=== PATIENT | female | born 1990 | race African-American/Black ===

== ENCOUNTER 2018-11-20 22:27 | Inpatient (IN) | payer OTHER ==
[~2018-11-20] VITALS: Ht 157.5 cm; Wt 89.8 kg
[2018-11-20 23:07] VITALS: BP 140/87
[2018-11-20] MEDS ORDERED: HYDROCHLOROTHIA25 M2 PO (23:29)
[2018-11-21 02:29] LABS: URINE BILIRUBIN NEGATIVE (Negative); URINE BLOOD 2+ (Negative); URINE CLARITY TURBID; URINE COLOR YELLOW; URINE GLUCOSE-RANDOM* NEGATIVE (Negative); URINE KETONES NEGATIVE (Negative); URINE LEUKOCYTES-REFLEX NEGATIVE (Negative); URINE NITRITE-REFLEX NEGATIVE (Negative); URINE PROTEIN (DIPSTICK) 2+ (Negative); URINE SPECIFIC GRAVITY >= 1.030 (1.005-1.035); URINE UROBILINOGEN 0.2 E.U./dl (0.2-1.0)
[2018-11-21 02:35] LABS: ABSOLUTE NEUTROPHILS 2.2 thou/uL (1.4-8.2); BASOPHILS 1.3 % (0.0-2.0); EOSINOPHILS 1.3 % (0.0-3.0); HEMATOCRIT 36.5 % (37.0-47.0); HEMOGLOBIN 12.1 gm/dL (12.0-15.0); LYMPHOCYTES 49.5 % (24.0-44.0); MCH 25.4 pg (26.0-34.0); MCHC 33.2 g/dL (28.0-37.0); MCV 76.6 fL (80.0-100.0); MONOCYTES 7.6 % (1.0-8.0); PLATELET COUNT 208 thou/uL (150-400); POLYS 40.3 % (36.0-66.0); RBC 4.77 mil/uL (4.20-5.00); RDW 16.8 % (10.5-14.5); WBC 5.5 thou/uL (4.0-11.0)
[2018-11-21 02:43] LABS: AMP/METHAMP Negative (Negative); BARBITURATES Negative (Negative); BENZODIAZEPINES Negative (Negative); COCAINE Negative (Negative); METHADONE Negative (Negative); OPIATES Negative (Negative); PCP Negative (Negative)
[2018-11-21 02:44] LABS: AMORPHOUS URATES Many /LPF (None Seen); BACTERIA-REFLEX 1-9 Few /HPF (None Seen); CASTS None Seen /LPF (None Seen); MUCUS 0-3 Light strn/LPF (None Seen); SQUAMOUS 0-3 Few /LPF (0-3); URINE RBC 3-10 Few /HPF (0-2); URINE WBC-REFLEX 0-5 Rare /HPF (0-5)
[2018-11-21 02:47] LABS: ANION GAP 10 mmol/L (7-16); BUN 6 mg/dL (7-18); CALCIUM 9.2 mg/dL (8.5-10.1); CHLORIDE 102 mmol/L (98-107); CO2 26 mmol/L (21-32); CREATININE 0.8 mg/dL (0.6-1.0); GLUCOSE 101 mg/dL (74-106); POTASSIUM 3.8 mmol/L (3.5-5.1); SODIUM 138 mmol/L (136-145)
[2018-11-21 02:51] LABS: APTT 27.1 Seconds (24.5-32.8); D-DIMER 0.35 ug/mLFEU (0.19-0.50); PROTIME 10.1 Seconds (9.3-11.4)
[2018-11-21 02:58] LABS: ALBUMIN 3.5 g/dL (3.4-5.0); MAGNESIUM 1.9 mg/dL (1.8-2.4); SGOT 17 U/L (15-37); SGPT 21 U/L (30-65); TOTAL BILIRUBIN 0.5 mg/dL (<0.1-1.0); TOTAL PROTEIN 8.3 g/dL (6.4-8.2); TROPONIN-I <0.06 ng/mL (<0.06)
[2018-11-21 06:12] VITALS: BP 156/82
[2018-11-21 07:35] VITALS: BP 137/107
--- NOTE | 2018-11-21 08:39 | EKG ---
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: LINDEN : 1990 Requested By: Mau Garner Order Number: [id number] MD: Antoine Cruz Measurements Intervals [place] Rate: 73 P: 8 GA: 181 QRS: 36 QRSD: 85 T: 14 QT: 392 QTc: 432 Interpretive Statements Sinus rhythm Borderline T wave abnormalities Baseline wander in lead(s) II,III,aVF No previous ECG available for comparison Electronically Signed On 11-21-2018 8:39:28 CDT by Antoine Cruz [email or web address] <ELECTRONICALLY SIGNED> By: Antoine Cruz MD, [facility] 11/21/18 0839 38 38 Antoine Cruz MD, FAC /EPI
[2018-11-21 11:20] VITALS: BP 153/93
[2018-11-21 17:15] VITALS: BP 140/86
--- NOTE | 2018-11-21 19:26 | NUR ---
ASSUMED CARE OF PATIENT AT 0700. ASSESSMENT CHARTED. ADMISSION COMPLETED. PATIENT COMPLAINING OF RIGHT SHOULDER PAIN, INCREASED WITH LAYING ON IT. PAIN CONTROLLED WITH FENTANYL. PATIENT RECEIVING IV ABX. PATIENT RESTING COMFORTABLY. CONTINUE WITH POC.
[2018-11-21 19:53] VITALS: BP 140/87
[2018-11-21 23:30] VITALS: BP 123/76
--- NOTE | 2018-11-22 02:24 | NUR ---
ASSUMED PT CARE AT 1900 WITH NO SIGN OF DISTRESS NOTED. PT IS ALERT AND ORIENTED. VITAL SIGNS STABLE. SCHEDULED MEDS ADMINISTERED TO PT. DENIES ANY NEED. PT IS SEENY ID . CONTINUE TO MONITOR. TRANSFER CARE TO KIM GALINDO.
[2018-11-22 04:05] VITALS: BP 152/94
[2018-11-22 05:30] LABS: CALCIUM 8.8 mg/dL (8.5-10.1); CREATININE 0.7 mg/dL (0.6-1.0); MAGNESIUM 1.8 mg/dL (1.8-2.4)
[2018-11-22 05:59] LABS: BASOPHILS 0.1 % (0.0-2.0); HEMATOCRIT 34.4 % (37.0-47.0); HEMOGLOBIN 11.6 gm/dL (12.0-15.0); LYMPHOCYTES 18.1 % (24.0-44.0); MCH 25.8 pg (26.0-34.0); MCHC 33.6 g/dL (28.0-37.0); MCV 76.7 fL (80.0-100.0); MONOCYTES 7.2 % (1.0-8.0); PLATELET COUNT 214 thou/uL (150-400); POLYS 74.6 % (36.0-66.0); RBC 4.48 mil/uL (4.20-5.00); RDW 16.4 % (10.5-14.5); WBC 6.7 thou/uL (4.0-11.0)
[2018-11-22 07:45] VITALS: BP 134/59
--- NOTE | 2018-11-22 08:57 | HC ---
[facility] [place] [address] [address] CONSULTATION Name: KEANU DOTY Room #: 205-P ADM IN M.R.#: [id number] Admission: 11/21/18 Attend Phys: Mary Kay Watson Discharge: Date of : [birth year] Report #: [id number] THIS REPORT FOR: //name// CC: [facility] physician/PCP Modesto Spence DATE OF SERVICE: 11/21/2018 REASON FOR CONSULTATION: Possible neck or throat involvement with cellulitis. HISTORY OF PRESENT ILLNESS: The patient is a 27-year-old female who has a long history of hidradenitis suppurativa in the right axilla who presented to [facility] this morning with complaint of right neck pain and some mild dysphagia. She had previously had an abscess drained in the right axilla in the last week and a half and she has noted progressive pain in the axilla, right shoulder, right supraclavicular fossa going towards the right neck. She presented to [facility] originally, but then presented here to [facility]. She has noted a possibility of fever and chills, but denies any difficulty with aspiration, significant odynophagia, nasal symptoms with postnasal discharge, rhinorrhea, sinus pressure pain. She denies any dyspnea or stridor. She has a known history of sleep apnea. She has no strong history of tonsillitis or strep throat. She denies any trismus or otalgia at this time. PAST MEDICAL AND SURGICAL HISTORY: As noted for essential hypertension and the above-mentioned hidradenitis suppurativa. MEDICATIONS: At the time of admission were noted. HOME MEDICATIONS: Include a diuretic. ALLERGIES: She has no known allergies to medications. REVIEW OF SYSTEMS: Aside from the above-mentioned symptoms, review systems in the HEENT area unremarkable. PHYSICAL EXAMINATION: VITAL SIGNS: Height of 5 feet 2 inches, weight of approximately 200 pounds. GENERAL: She was in a semi-reclining position in her hospital bed. She did not appear to be in any distress. She had a normal appearing voice. She was not short of breath. HEENT: Examination of her face reveals no evidence of any cellulitis or significant swelling. Ear examination is normal. Anterior nares reveals normal appearing nasal mucosa with a straight septum and turbinates are unremarkable. [address] [address] CONSULTATION Name: KEANU DOTY Room #: 205-P [facility] IN M.R.#: [id number] Admission: 11/21/18 Attend Phys: Mary Kay Watson Discharge: Date of : 89 Report #: [id number] Oral cavity reveals no trismus. The dentition is unremarkable without significant caries. The gingiva appears normal. Floor of mouth is normal. The tongue appears normal. The oropharynx by direct visualization appears unremarkable without any bulging or hyperemia. NECK: Palpation of her neck does not reveal any specific lymphadenopathy or abscess collection. She does have some generalized tenderness to the right posterior neck triangle and some in the right supraclavicular region that is nonspecific. DIAGNOSTIC STUDIES: CT scan was reviewed. There is no evidence of fluid collection in the soft tissues of the neck, retropharyngeal, prevertebral or parapharyngeal spaces. There is moderate swelling in the glottic region by CT scan. No abscesses were noted within the neck itself. Flexible laryngoscopy was performed through an anesthetized right naris. Visualization of the nasal cavity, nasopharynx, oropharynx and hypopharynx were performed. The scope was withdrawn. Findings were as noted below. Normal appearance to the nose, nasopharynx, oropharynx, base of tongue, lingual and laryngeal surfaces of the epiglottis and larynx. There is no encroachment on the airway. There was no sign of bulging on the lateral posterior pharyngeal lyon. ASSESSMENT: History of cellulitis of the right axilla, neck and shoulder without evidence of abscess formation. RECOMMENDATIONS: I would recommend continuation with present therapy. According to Infectious Disease, there should be no encroachment on the airway at this time. I will be available standby if she needs to be reevaluated at this time, I would expect her to recover well with intravenous therapy. Thank you for this consultation. <ELECTRONICALLY SIGNED> By: Modesto Coffey MD 11/22/18 0857 [id number] [id number] Modesto Coffey MD /nt
--- NOTE | 2018-11-22 11:09 | NUR ---
ASSUMED CARE AT 0700, SHIFT ASSESSMENT DONE, MEDS GIVEN, VSS. REPORTED PAIN, PRN PAIN MEDS GIVEN. RECEIVING IV ANTIBIOTICS, ON ROOM AIR, UP AD GENO. AWAITING FOR SURGERY CONSULT. WILL CONTINUE TO ASSESS AND ASSIST WITH ADLs NEEDED.
[2018-11-22 11:50] VITALS: BP 146/86
--- NOTE | 2018-11-22 12:07 | NUR ---
Met with the pt at bedside. She is drowsy and indicates that she needs to call her employer to check on the status of her insurance coverage. She is uncertain of the effective day and does not have a card yet. She has a emiliano application at bedside if needed. She lives in a duplex with her children and is normally indep. She denies any dc concerns at this time and will f/u with her employer about her coverage.
[2018-11-22 15:55] VITALS: BP 142/93
--- NOTE | 2018-11-22 17:27 | HC ---
[facility] [place] [address] [address] CONSULTATION Name: KEANU DOTY Room #: 205-P ADM IN M.R.#: [id number] Admission: 11/21/18 Attend Phys: Mary Kay Watson Discharge: Date of : 89 Report #: [id number] THIS REPORT FOR: //name// CC: [facility] physician/PCP Modesto Spence DATE OF SERVICE: 11/21/2018 INFECTIOUS DISEASE CONSULTATION REASON FOR CONSULTATION: I was asked to evaluate concerning left chest, neck, soft tissue infection. HISTORY OF PRESENT ILLNESS: The patient is a 27-year-old, underlying history of hidradenitis suppurativa, mostly involving her axillary regions and chest. She has had several episodes of abscess formation that required antibiotic therapy incision and drainage. Five days ago, developed acute onset of pain in her right neck. Three weeks prior to this, she had a lesion that involved the right axillary soft tissues that was diagnosed with an abscess of hidradenitis that was treated with incision and drainage. The pain in her right neck was evaluated at [facility]. No new diagnosis was established. She was then discharged, but while at home, she developed worsening pain with associated shortness of breath. Most of the pain was up into her right chest and neck region. She does have drainage from her axillary wound. Due to this worsening, she was hospitalized for further evaluation. She also complained of some difficulty swallowing, but this has stabilized. There has been no nausea, vomiting, abdominal pain or diarrhea. No dysuria or frequency. No cough or sputum production. REVIEW OF SYSTEMS: A 10-point review of system was negative other than what is described above. ALLERGIES: None known. MEDICATIONS: As noted on MAR including vancomycin and Zosyn. PAST MEDICAL HISTORY: Hypertension, hidradenitis, obesity. FAMILY HISTORY: Noncontributory. SOCIAL HISTORY: Nonsmoker, other than THC. No significant alcohol intake. Denies HIV risks. PHYSICAL EXAMINATION: [facility] [address] [place] [address] CONSULTATION Name: KEANU DOTY Room #: 205-P [facility] IN M.R.#: [id number] Admission: 11/21/18 Attend Phys: Mary Kay Fox Shirley Discharge: Date of : 89 Report #: [id number] VITAL SIGNS: Afebrile and hemodynamically stable. GENERAL: Alert and cooperative. She was obese. SKIN: A wound to her right axillary. Skin with moderate amount of seropurulent drainage. I did not find a specific sinus tract. She was tender in this region, which extended up to her anterior shoulder and trapezius region on the right as well as her right neck. Range of motion in the neck was normal. Could not palpate any significant adenopathy. Range of motion of the shoulder was normal. HEENT: Eyes, without scleral icterus. Mouth without mucositis. NECK: Supple. No palpable adenopathy. LUNGS: Clear. HEART: Regular. ABDOMEN: Soft and nontender with no hepatosplenomegaly or mass. EXTREMITIES: Without clubbing, cyanosis or edema. NEUROLOGIC: Cranial nerves intact. Strength in the upper and lower extremities normal. Sensation in the upper and lower extremities normal. Mood was normal. LABORATORY STUDIES: Reviewed. Blood cultures are pending. CT scan of the chest showed inflammatory change in the upper chest without bony abnormality or inflammation in the sternoclavicular or shoulder. IMPRESSION: 1. Right axillary hidradenitis with active lesion there. No drainable abscess evident. Now has soft tissue infection of the right chest, neck region. 2. Obesity. 3. Hypertension. RECOMMENDATIONS: We will continue antibiotic coverage with vancomycin and Zosyn, pending further culture results. We will obtain screen of her right axillary drainage. If no evidence of MRSA, we will drop out the vancomycin. Although she has tenderness over the chest, there is no evidence so far of sternoclavicular arthritis or shoulder involvement. <ELECTRONICALLY SIGNED> By: Mau Rae MD 11/22/18 1727 2125 0150 Mau Rae MD /nt
[2018-11-22 21:39] VITALS: BP 143/85
--- NOTE | 2018-11-23 00:50 | NUR ---
THIS NURSE RECEIVED PATIENT AT SHIFT CHANGE, HOWEVER, PATIENT WAS TRANSFERRED AFTER 2100 MEDICATIONS WERE GIVEN TO ROOM 457 ON 4W. REPORT WAS CALLED AND RECEIVED BY MATEO LEONARDO. PATIENT IS ALERT AND ORIENTED X4 AND HAD HER DAUGHTER OF [employer] 5YEARS OLD WITH HER WHOM SHE SAID WAS GOING TO SPEND THE NIGHT WITH HER AND THAT IT HAD BEEN OK'D - BY WHOM WAS NEVER EXTABLISHED. THIS NURSE HAD THE PATIENT CALL AND MAKE ARRANGEMENTS FOR THE DAUGHTER TO BE PICKED UP FROM ROOM 457. TRANSFER TOOK PLACE AT [address] 2158 VIA WHEELCHAIR.
--- NOTE | 2018-11-23 04:57 | NUR ---
Pt. rested quietly at intervals during the night when checked on during frequent rounds. Pain meds given (see emar) for c/o abdomial pain with some relief noted. Pt. up ad grant in her room.
[2018-11-23 08:00] VITALS: BP 140/106
[2018-11-23 15:00] VITALS: BP 148/90
--- NOTE | 2018-11-23 20:19 | NUR ---
1PM-7PM Received from day shift nurse awake on bed. Due medications given as prescribed. With SL at L hand, with NS at 125cc/hr infusing well at L AC. A+Ox4. On room air. Up ad grant. Complained of pain, due PRN pain meds given as prescribed. No episodes or complain of nausea, vomiting or abdominal pain. Pt complained of constipation and not being able to have bowel movement for 3 days already- Dr Cunningham informed and prescribed stool softener- given as prescribed. Vital signs stable.
[2018-11-23 21:36] VITALS: BP 152/95
--- NOTE | 2018-11-24 04:07 | NUR ---
Pt. rested quietly at intervals during the night when checked on during frequent rounds. She c/o abdominal pain and pain medication given (see emar) with some relief noted. Up ad grant in her room.
[2018-11-24 05:15] LABS: HEMATOCRIT 39.4 % (37.0-47.0); HEMOGLOBIN 12.9 gm/dL (12.0-15.0); MCHC 32.7 g/dL (28.0-37.0); MCV 76.5 fL (80.0-100.0); RBC 5.15 mil/uL (4.20-5.00); RDW 16.4 % (10.5-14.5); WBC 6.1 thou/uL (4.0-11.0)
[2018-11-24 05:37] LABS: CALCIUM 9.4 mg/dL (8.5-10.1); CREATININE 0.9 mg/dL (0.6-1.0); POTASSIUM 3.4 mmol/L (3.5-5.1)
[2018-11-24 15:00] VITALS: BP 139/86
--- NOTE | 2018-11-24 17:21 | NUR ---
Assumed pt care this am, VS have been stable an has been up at grant. Pt met her goal to have a BM which she stated happened last night. Pt did complain of pain and a bit of nausea, managed with medications, relief was noted. POC and IV and oral medication given with no issues. Awaiting lab cultures. No signs or verbalizations of distress have been noted. POC followed.
[2018-11-24 19:23] VITALS: BP 144/98
--- NOTE | 2018-11-25 06:39 | NUR ---
PROGRESS PT A/O X4 RATING PAIN A 5 TO AN 8, VSS,AFEBRILE SKIN CLEAN DRY INTACT NO AREAS OF ERYTHEMA NOTED OR ANY WOUNDS. LEFT HAND IV PULLED OUT IN HER SLEEP SO IVF'S INFUSING INTO IV IN LAC. UP AD GENO AMBULATING TO BATHROOM INDEPENDENTLY GAIT STEADY. IV ANTIBIOTICS CONTINUE. PT VOIDING QS HAS GOOD PO FLUID INTAKE AND EATING ADEQUATE AMOUNT OF FOOD. PAIN MANAGED WITH TYLENOL. CONTINUE POC.
[2018-11-25 07:34] VITALS: BP 130/87
--- NOTE | 2018-11-25 10:25 | NUR ---
PIV ATTEMPTED AND UNSUCESSFUL. DISCUSSED MIDLINE PLACEMENT WITH THE PATIENT AND NURSE AND THE PATIENT AGREES. IV MEDS ARE APPROPRIATE. A #4F POWER MIDLINE WAS PLACED IN THE LEFT CEPHALIC VEIN PER HOSPITAL POLICY. MIDLINE WAS TRIMMED TO 15CM AND ADVANCED WITHOUT DIFFICULTY. LINE SECURED AND RELEASED FOR USE
--- NOTE | 2018-11-25 14:58 | NUR ---
Assumed pt care this am, pt complained of pain on her IV site which started last night. Stopped the IV and removed the line. IV team places a midline on the left upper arm, patent in flushing and aspirating blood, midline care done. Pain has decreased on the affected sites, Sen by Dr. Rae, some medications changed POC followed. Pt verbalized being nauseated once, mananged with medications. POC followed
[2018-11-25 19:45] VITALS: BP 141/84
--- NOTE | 2018-11-26 04:36 | NUR ---
Pt. rested quietly at intervals during the night when checked on during frequent rounds. She does c/o abdominal pain and iv pain medication given (see emar) with relief noted. No c/o any emesis. Up ad grant in her room.
[2018-11-26 08:44] VITALS: BP 140/96
[2018-11-26] MEDS ORDERED: CEFDINIR300 MG PO (13:23)
[2018-11-26] MEDS ORDERED: HIBICLENS118 ML TOP (13:24)
--- NOTE | 2018-11-26 13:42 | NUR ---
CARE TEAM INDICATED THAT PT IS MEDICALLY STABLE TO DC HOME THIS DAY. PHYSICIAN WROTE TWO PERSCRIPTIONS FOR PT TO FILL UPON DC. CM VISITED WITH PT TO SEE IF SHE IS ABLE TO PAY TO FILL THE PERSCRIPTIONS. SHE INDICATED SHE WOULD BE. PT IS TO DISCHARGE HOME TODAY WIHT NO NEEDS. NO OTHER CM INTERVENTION INDICATED. CASE CLOSED.
[2018-11-26 14:16] VITALS: BP 140/96
--- NOTE | 2018-11-26 16:13 | NUR ---
PT DISCHARGED HOME. PT A&OX4, VSS, C/O HEADACHE AND REQUESTED ONLY TYLENOL EARLY IN SHIFT. NO SIGNS OF DISTRESS, MIDLINE ON LEFT ARM REMOVED. PRESSURE PLACED FOR 5 MINS, PATIENT WAITED 10 MINS AND NO BLEEDING AT DRESSING SITE. ALL BELONINGS WITH PATIENT, UNDERSTANDING OF DISHCARGE PAPERWORK AND PRESCRIPTIONS VERBALIZED.
== END 2018-11-26 16:42 | disposition home or self-care (01) | DRG 603 ==
LOC: ER 22:27 → EROBS 11-21 05:06 → 2N 11-21 06:42 → 4W 11-22 22:30
PROVIDERS: Emergency Medicine; Hospitalist; Nurse Practitioner; ADMIT Hospitalist
PROC: 05HY33Z Insertion of Infusion Device into Upper Vein, Percutaneous Approach (ICD-10-PCS; principal; 2018-11-25)
DX: L03.113 Cellulitis of right upper limb (principal); L03.313 Cellulitis of chest wall; L03.221 Cellulitis of neck; I10 Essential (primary) hypertension; L73.2 Hidradenitis suppurativa; R13.10 Dysphagia, unspecified; E66.9 Obesity, unspecified; B96.1 Klebsiella pneumoniae [K. pneumoniae] as the cause of diseases classified elsewhere; B96.4 Proteus (mirabilis) (morganii) as the cause of diseases classified elsewhere; Z87.440 Personal history of urinary (tract) infections; Z84.89 Family history of other specified conditions; Z79.899 Other long term (current) drug therapy; Z68.36 Body mass index [BMI] 36.0-36.9, adult
CPT/HCPCS: 10047; 10081; 27000

== ENCOUNTER 2018-11-26 19:21 | Emergency (ER) | payer OTHER ==
[~2018-11-26] VITALS: Ht 157.5 cm; Wt 89.8 kg
[~2018-11-26 19:21] MED LIST: CEFDINIR300 MG PO; HIBICLENS118 ML TOP; HYDROCHLOROTHIA25 M2 PO
[2018-11-26 20:23] LABS: URINE BILIRUBIN NEGATIVE (Negative); URINE BLOOD 3+ (Negative); URINE CLARITY CLEAR; URINE COLOR YELLOW; URINE GLUCOSE-RANDOM* NEGATIVE (Negative); URINE KETONES NEGATIVE (Negative); URINE NITRITE-REFLEX NEGATIVE (Negative); URINE PROTEIN (DIPSTICK) NEGATIVE (Negative); URINE SPECIFIC GRAVITY <= 1.005 (1.005-1.035); URINE UROBILINOGEN 0.2 E.U./dl (0.2-1.0)
[2018-11-26 20:33] LABS: URINE LEUKOCYTES-REFLEX 1+ (Negative)
[2018-11-26 20:40] LABS: CASTS None Seen /LPF (None Seen); CRYSTALS None Seen /LPF (None Seen); SQUAMOUS 4-10 Moderate /LPF (0-3)
[2018-11-26 20:41] LABS: BACTERIA-REFLEX None Seen /HPF (None Seen); URINE RBC 3-10 Few /HPF (0-2)
[2018-11-26 22:08] LABS: ABSOLUTE NEUTROPHILS 5.3 thou/uL (1.4-8.2); BASOPHILS 0.7 % (0.0-2.0); EOSINOPHILS 1.5 % (0.0-3.0); HEMATOCRIT 35.2 % (37.0-47.0); HEMOGLOBIN 11.6 gm/dL (12.0-15.0); MCH 25.3 pg (26.0-34.0); MCV 76.6 fL (80.0-100.0); MONOCYTES 7.4 % (1.0-8.0); PLATELET COUNT 253 thou/uL (150-400); POLYS 64.4 % (36.0-66.0); RBC 4.59 mil/uL (4.20-5.00); RDW 16.4 % (10.5-14.5); WBC 8.3 thou/uL (4.0-11.0)
[2018-11-26 22:18] LABS: ANION GAP 9 mmol/L (7-16); BUN 8 mg/dL (7-18); CALCIUM 9.2 mg/dL (8.5-10.1); CHLORIDE 105 mmol/L (98-107); CO2 26 mmol/L (21-32); CREATININE 1.2 mg/dL (0.6-1.0); GLUCOSE 107 mg/dL (74-106); POTASSIUM 3.1 mmol/L (3.5-5.1); SODIUM 140 mmol/L (136-145)
[2018-11-26 22:28] LABS: LIPASE 46 U/L (73-393); TROPONIN-I <0.06 ng/mL (<0.06)
[2018-11-26 23:05] VITALS: BP 134/85
--- NOTE | 2018-11-27 08:38 | EKG ---
[place] [address] [employer] [facility] [place] [address] ELECTROCARDIOGRAM REPORT Name: KEANU DOTY Room #: DEP Gee#: [id number] Admission: 11/26/18 Attend Phys: Discharge: 11/26/18 Date of : 89 Report #: [id number] THIS REPORT FOR: //name// [facility] ED Test Date: 2018-11-26 Test Time: 21:01:37 Pat Name: KEANU DOTY Department: Room: Gender: F Architect Intern: IBIS : 1990 Requested By: Hammad Jauregui Order Number: [id number] MD: Antoine Cruz Measurements Intervals [place] Rate: 79 P: 41 WV: 183 QRS: 34 QRSD: 96 T: 3 QT: 389 QTc: 447 Interpretive Statements Sinus rhythm Nonspecific T wave abnormality Compared to ECG 11/20/2018 22:39:02 No significant changes Electronically Signed On 11-27-2018 8:38:16 CDT by Antoine Cruz [email or web address] <ELECTRONICALLY SIGNED> By: Antoine Cruz MD, [facility] 11/27/18 0838 210 00 Antoine Cruz MD, FACC /EPI
== END 2018-11-26 23:13 | disposition home or self-care (01) ==
LOC: ER 19:21
PROVIDERS: Emergency Medicine
DX: A59.9 Trichomoniasis, unspecified (principal); R52 Pain, unspecified; I10 Essential (primary) hypertension; L73.2 Hidradenitis suppurativa

== ENCOUNTER 2019-01-27 22:42 | Emergency (ER) | payer OTHER ==
[~2019-01-27] VITALS: Ht 160 cm; Wt 89.8 kg
[2019-01-27 22:43] VITALS: BP 142/89
[2019-01-28] MEDS ORDERED: TRAMADOL 50 MG50 MG PO (01:19)
[2019-01-28] MEDS ORDERED: NAPROSYN500 MG PO (01:19)
== END 2019-01-28 01:41 | disposition home or self-care (01) ==
LOC: ER 22:42
DX: S20.211A Contusion of right front wall of thorax, initial encounter (principal); S70.01XA Contusion of right hip, initial encounter; S09.8XXA Other specified injuries of head, initial encounter; I10 Essential (primary) hypertension; V89.2XXA Person injured in unspecified motor-vehicle accident, traffic, initial encounter; Y93.89 Activity, other specified; Y92.89 Other specified places as the place of occurrence of the external cause; Y99.8 Other external cause status

== ENCOUNTER 2019-02-25 21:31 | Inpatient (IN) | payer OTHER ==
[~2019-02-25] VITALS: Ht 160 cm; Wt 89.8 kg
[~2019-02-25 21:31] MED LIST changes: +NAPROSYN500 MG PO; +TRAMADOL 50 MG50 MG PO
[2019-02-25 21:32] VITALS: BP 176/112; BP 176/122
[2019-02-25 23:24] LABS: ABSOLUTE NEUTROPHILS 3.2 thou/uL (1.4-8.2); BASOPHILS 0.8 % (0.0-2.0); EOSINOPHILS 1.6 % (0.0-3.0); HEMATOCRIT 36.9 % (37.0-47.0); HEMOGLOBIN 11.9 gm/dL (12.0-15.0); LYMPHOCYTES 48.5 % (24.0-44.0); MCH 25.7 pg (26.0-34.0); MCHC 32.3 g/dL (28.0-37.0); MCV 79.5 fL (80.0-100.0); MONOCYTES 6.2 % (1.0-8.0); PLATELET COUNT 276 thou/uL (150-400); POLYS 42.9 % (36.0-66.0); RBC 4.65 mil/uL (4.20-5.00); RDW 17.1 % (10.5-14.5); WBC 7.4 thou/uL (4.0-11.0)
[2019-02-25 23:37] LABS: CALCIUM 9.6 mg/dL (8.5-10.1); CREATININE 0.8 mg/dL (0.6-1.0); POTASSIUM 3.4 mmol/L (3.5-5.1)
[2019-02-25 23:44] LABS: ALBUMIN 3.6 g/dL (3.4-5.0); TOTAL BILIRUBIN 0.2 mg/dL (<0.1-1.0); TOTAL PROTEIN 7.8 g/dL (6.4-8.2)
[2019-02-26 19:11] VITALS: BP 110/68
[2019-02-26 19:15] VITALS: BP 143/99
--- NOTE | 2019-02-27 04:04 | NUR ---
New pt arrived the unit at change of shift. pt was admitted on the 02/25 but had to stay in ER because there was no available beds. pt is a&ox4. adlib in room. pt has a ?abscess in her left ampit. pain was not able to be controlled with fentnyl and pt didn't want to take ordered narco. a onetime order for toradol was given and pt is sleeping at the time of this note. v/s stable. no s/s of distress. will cont to monitor.
[2019-02-27 06:32] LABS: CALCIUM 9.1 mg/dL (8.5-10.1); CREATININE 0.8 mg/dL (0.6-1.0); MAGNESIUM 1.8 mg/dL (1.8-2.4); POTASSIUM 4.2 mmol/L (3.5-5.1)
[2019-02-27 08:39] VITALS: BP 131/80
[2019-02-27 15:11] VITALS: BP 152/98
[2019-02-27 19:25] VITALS: BP 153/111
--- NOTE | 2019-02-27 19:56 | NUR ---
Received awake on bed. Due medications given as prescribed. Complained of pain, due PRN pain meds given as prescribed. On room air. Vital signs stable. A+Ox4. With NS at 80cc/hr, infusing well at R AC. Assisted in ADLs. Up ad grant. Dr Cunningham informed that pt's pain is not relieved by Fentanyl IV, he prescribed Oxycodone PO- given as prescribed. With relative at the bedside. On heart healthy diet- tolerating well; no vomiting and no abdominal pain noted. To continue monitoring patient.
--- NOTE | 2019-02-28 05:10 | NUR ---
Assessment completed. pain controled with oxycodone and pt was able to go to sleep after taking. pt stated that she feels like one more abscess is coming out from her left ampit. abx still on board. pt adlib. friend stayed the night. v/s stable. no s/s of distress. will cont to monitor
[2019-02-28 08:28] VITALS: BP 141/98
[2019-02-28 15:57] VITALS: BP 137/81
--- NOTE | 2019-02-28 16:44 | NUR ---
CM MET WITH PT AT BEDSIDE THIS DAY. PT IS A&O X4. CM ROLE INTRODUCED. PT INDICATED SHE LIVES IN A TOWNHOUSE WITH HER CHILD. PT INDICATED THERE ARE 26 STEPS INSIDE. 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 PT INDICATED SHE IS WORKING FOR [employer] AND NEEDS TO ASK HER BOSS ABOUT INSURANCE COVERAGE BUT THAT SHE IS CURRENTLY PATIENT PAY. SHE STATED THAT SHE WOULD BE ABLE TO PAY FOR ANY SCRIPTS THAT SHE MIGHT NEED UPON DC. CM TO FOLLOW INDICATED WITH DC PLANNING.
[2019-02-28 20:37] VITALS: BP 140/92
--- NOTE | 2019-02-28 21:11 | NUR ---
Received awake on bed. Due medications given as prescribed, able to swallow meds w/o difficulty. A+Ox4. On room air. Vital signs stable. Complained of pain, due PRN pain meds given as prescribed. With NS at 80cc/hr, infusing well at [facility]- on IV antibiotics. Assisted in ADLs. Able to walk around in the hallway. With relative at bedside. With consult to Dr Moran- US called in consult. Pt seen by Dr Moran- bedside I&D done, consent signed, tolerated well, dressing placed. Lab called re: orders to for specimen sent- asked Dr Moran and he said he needs wound cultures- orders made, specimen sent and lab staff updated. Pt vomited- PRN antiemetic given as prescribed. Pt's current IV at [facility] dislodged- tried to put an IV in but I could not find any veins on the pt, pt informed me she used to have a midline because she is a hard stick- called IV nurse, came up to the paredes at around 16-1700, she was able to put peripheral line at R upper arm, re-started missed Vancomycin dose , after a few minutes pt called re: pain at IV site- swelling noted, removed current IV and called IV team for re-insertion or possible midline or PICC line insertion. Report given to second shift supervisor nurse re: re-insertion of IV, missed dose of Vancomycin and Ampicillin-sulbactam.
--- NOTE | 2019-03-01 04:30 | NUR ---
Pt. rested quietly at intervals during the night when checked on during frequent rounds. She can be tearful at times and just wants to go home. Pt. c/o pain to left chest wall and has had pain meds (see emar) with some relief noted. Dressing under left arm is intact. Pt. offers no c/o nausea. Up ad grant.
[2019-03-01 08:15] VITALS: BP 159/74
[2019-03-01 08:58] LABS: HEMATOCRIT 39.8 % (37.0-47.0); HEMOGLOBIN 12.7 gm/dL (12.0-15.0); MCH 25.5 pg (26.0-34.0); MCHC 31.9 g/dL (28.0-37.0); MCV 79.7 fL (80.0-100.0); RBC 4.99 mil/uL (4.20-5.00); RDW 17.2 % (10.5-14.5); WBC 6.3 thou/uL (4.0-11.0)
[2019-03-01 09:10] LABS: CALCIUM 9.4 mg/dL (8.5-10.1); CREATININE 0.9 mg/dL (0.6-1.0); POTASSIUM 3.6 mmol/L (3.5-5.1)
--- NOTE | 2019-03-01 15:30 | NUR ---
Received awake on bed. Due medications given as prescribed, able to swallow meds w/o difficulty. A+Ox4. On room air. Vital signs stable. With NS 80cc/hr, infusing well at L FA. Complained of pain, due PRN pain meds given as prescribed. With wound at L axilla- packing and dressing changed, photo taken. With relative at bedside. Able to walk around the hallway.
[2019-03-01 16:45] VITALS: BP 144/85
[2019-03-01 20:08] VITALS: BP 149/107
[2019-03-01 23:55] VITALS: BP 144/90
--- NOTE | 2019-03-02 04:31 | NUR ---
Pt. rested quietly at intervals during the night when checked on during frequent rounds. Unable to flush her iv around 2300 last night and it was removed. Attmepted to restart iv, but unsuccessful. Spoke with Dr. Castro around 2330 last night and he was informed. Orders to give po antibiotic and hold Unasyn until a new iv could be restarted. Will have iv team attempt another stick this am. She does c/o pain to her left chest wall (non-cardiac) and was given po pain meds (see emar) with some relief noted. No c/o nausea. Dressing under left arm is intact.
[2019-03-02 08:00] VITALS: BP 123/83
[2019-03-02] MEDS ORDERED: NORVASC10 MG PO (12:05)
[2019-03-02] MEDS ORDERED: AUGMENTIN 500-1 EACH PO (12:05)
[2019-03-02] MEDS ORDERED: PERCOCET PO (12:06)
[2019-03-02 13:22] VITALS: BP 123/83
[2019-03-02 15:00] VITALS: BP 142/98
--- NOTE | 2019-03-02 16:52 | NUR ---
ASSUMED PT CARE AT 7AM.PT IN BED VERY UPSET ABOUT SEVERAL NEEDLE STICK FOR PIV THIS ADMISSION.SERVICE RECOVERY DONE AND IV TEAM FOR PLACING PIV.ASSESSMENT COMPLETED.VSS.DR KNIGHT HERE, DC ORDER NOTED.DRSG CHANGE DONE TO LEFT AXILLARY ORDERED.PT WILL BE HAVING THE SECOND DOSE OF AMPICILLIN IVPB PRIOR TO DC HOME THIS EVENING.DC SUMMARY COMPILE AND WILL REVIEW WITH PT PRIOR TO DC HOME WILL CONTINUE TO MONITOR.
--- NOTE | 2019-03-03 12:35 | O ---
[facility] [place] [address] OPERATIVE REPORT Name: KEANU DOTY Room #: 464-P [facility] IN M.R.#: [id number] Admission: 02/26/19 Attend Phys: Kun Cunningham MD Discharge: 03/02/19 Date of : 89 Report #: [id number] THIS REPORT FOR: //name// CC: [facility] physician/PCP Kun Cunningham DATE OF SERVICE: 02/28/2019 PROCEDURE PERFORMED: Incision and drainage of left axillary hidradenitis suppurativa abscess. PREOPERATIVE DIAGNOSES: 1. Left axillary hidradenitis suppurativa abscesses. 2. Morbid obesity. 3. History of hidradenitis of the right axilla. 4. History of hidradenitis of the chest. 5. Hypertension. POSTOPERATIVE DIAGNOSIS: 1. Left axillary hidradenitis suppurativa abscesses. 2. Morbid obesity. 3. History of hidradenitis of the right axilla. 4. History of hidradenitis of the chest. 5. Hypertension. SURGEON: Dr. Moran. REPORT CHECKER: None. ANESTHESIA: Marcaine with epinephrine. ESTIMATED BLOOD LOSS: Less than 5 mL. URINE OUTPUT: Not measured. COMPLICATIONS: None. SPECIMENS: Culture swab sent for Gram stain, anaerobic and aerobic cultures. INDICATIONS FOR PROCEDURE: The patient is a very pleasant lady presented with a left axillary pain and was found to have an abscess and exam consistent with hidradenitis suppurativa. The patient has had this in the past. She reports that she would like to have this drained as this has helped her speedier recovery in the past. The risks, benefits, and alternatives of the procedure were discussed with the patient. The risks discussed included, but were not limited to risk of bleeding, infection, damage to any nearby anatomy, including [facility] [address] [place] [address] OPERATIVE REPORT Name: KEANU DOTY Room #: 464-P [facility] IN [facility]#: [id number] Admission: 02/26/19 Attend Phys: Kun Cunningham MD Discharge: 03/02/19 Date of : 89 Report #: [id number] nerve damage, vessel damage, tendon damage, etc., anesthesia, and wound nonhealing. Alternatives discussed including no surgery and continued conservative management with medication. The patient had the opportunity to ask questions. All questions were answered to the best of my ability. The patient was comfortable proceeding. I think I actually took care of this patient's mother. DESCRIPTION OF PROCEDURE: After informed consent was obtained as above, the patient was placed in the supine position in her hospital bed. Her left axillary region was prepped and draped in the usual sterile fashion. Timeout was performed. The left axilla was anesthetized using the local anesthetic overlying the two separate abscesses. Both abscesses were incised with 11 blade scalpel in a cruciate fashion. Both abscess cavities were explored. There was purulent fluid within the larger abscess. Culture swabs were obtained. There was serosanguineous fluid in the smaller abscess. The abscess cavities were explored. They were irrigated out. They were then packed with Dakin-soaked gauze. The patient was hemostatic. Appropriate dressings were placed. The patient tolerated the procedure well. There were no adverse events throughout the course of the procedure. <ELECTRONICALLY SIGNED> By: Kalen Moran MD 03/03/19 1235 [id number] Kalen Moran MD /nt
--- NOTE | 2019-03-06 23:01 | HC ---
[facility] [place] [address] CONSULTATION Name: KEANU DOTY Room #: 464-P [facility] IN .R.#: [id number] Admission: 02/26/19 Attend Phys: Kun Cunningham MD Discharge: 03/02/19 Date of : 89 Report #: [id number] THIS REPORT FOR: //name// CC: [facility] physician/PCP Kun Cunningham DATE OF SERVICE: 02/27/2019 INFECTIOUS DISEASES CONSULTATION REASON FOR CONSULTATION: Evaluate left axillary hidradenitis. HISTORY OF PRESENT ILLNESS: The patient is a 28-year-old with known hidradenitis suppurativa and morbid obesity. Treated previously with incision and drainage involving the left axilla and mid chest as well as neck region. Previous growth of Klebsiella and Proteus. Returns now with a left axillary swelling, pain, low-grade fever for 48 hours prior to her hospitalization. No nausea, vomiting or diarrhea. No cough or sputum production. No dysuria or frequency. REVIEW OF SYSTEMS: Ten-point review of system was negative other than what has been described above. ALLERGIES: None known. MEDICATIONS: Hydrochlorothiazide, now on vancomycin and ceftriaxone. PAST MEDICAL HISTORY: Hypertension, hidradenitis, , right axillary abscess, gastroesophageal reflux. FAMILY HISTORY: Hypertension. SOCIAL HISTORY: Nonsmoker, no significant alcohol intake. PHYSICAL EXAMINATION: VITAL SIGNS: She is afebrile and hemodynamically stable. GENERAL: Alert and cooperative. EXTREMITIES: Left axillary mass was tender to palpation, was fluctuant, surrounding with associated cellulitis. There was tender adenopathy. EYES: Without scleral icterus. MOUTH: Without mucositis. NECK: Supple. LUNGS: Clear. HEART: Regular, without murmur, gallop or rub. ABDOMEN: Soft, obese, and nontender. No hepatosplenomegaly or mass. EXTREMITIES: Without clubbing, cyanosis or edema. [facility] [address] [place] [address] CONSULTATION Name: KEANU DOTY Room #: 464-P [facility] IN [facility]#: [id number] Admission: 02/26/19 Attend Phys: Kun Cunningham MD Discharge: 03/02/19 Date of : 89 Report #: [id number] NEUROLOGIC: Cranial nerves intact. Strength in upper and lower extremities normal. Sensation to touch upper and lower extremities normal. Alert and cooperative. Mental status normal. Mood and affect normal. LABORATORY STUDIES: Reviewed. Microbiology reviewed. Soft tissue ultrasound shows diffuse edema without definite abscess. IMPRESSION: Hidradenitis suppurativa involving the axillary soft tissues, morbid obesity, hypertension. RECOMMENDATIONS: Continue IV antibiotic therapy. Surgical consultation for incision and drainage. Adjust antibiotics pending culture results. Weight loss. Continue with Hibiclens daily showers. <ELECTRONICALLY SIGNED> By: Mau Rae MD 03/06/19 2301 [id number] [id number] Mau Rae MD /moises
== END 2019-03-02 19:20 | disposition home or self-care (01) | DRG 603 ==
LOC: ER 21:31 → EROBS 02-26 00:55 → 4W 02-26 00:55
PROVIDERS: Emergency Medicine; Nurse Practitioner Acute Care; ADMIT Hospitalist
PROC: 0X950ZZ Drainage of Left Axilla, Open Approach (ICD-10-PCS; principal; 2019-02-28)
DX: L02.412 Cutaneous abscess of left axilla (principal); L73.2 Hidradenitis suppurativa; I10 Essential (primary) hypertension; E66.01 Morbid (severe) obesity due to excess calories; K21.9 Gastro-esophageal reflux disease without esophagitis; E87.6 Hypokalemia; Z82.49 Family history of ischemic heart disease and other diseases of the circulatory system; Z79.891 Long term (current) use of opiate analgesic; Z68.35 Body mass index [BMI] 35.0-35.9, adult; Z79.2 Long term (current) use of antibiotics; Z79.899 Other long term (current) drug therapy
CPT/HCPCS: 10040

== ENCOUNTER 2019-03-04 21:03 | Emergency (ER) | payer OTHER ==
[~2019-03-04] VITALS: Ht 157.5 cm; Wt 89.8 kg
[~2019-03-04 21:03] MED LIST changes: +AUGMENTIN 500-1 EACH PO; +NORVASC10 MG PO; +PERCOCET PO
[2019-03-04] MEDS ORDERED: NAPROSYN500 MG PO (21:11)
[2019-03-04 22:26] LABS: BASOPHILS 1.2 % (0.0-2.0); EOSINOPHILS 1.3 % (0.0-3.0); HEMATOCRIT 39.1 % (37.0-47.0); HEMOGLOBIN 12.6 gm/dL (12.0-15.0); LYMPHOCYTES 35.1 % (24.0-44.0); MCH 25.3 pg (26.0-34.0); MCHC 32.2 g/dL (28.0-37.0); MCV 78.7 fL (80.0-100.0); MONOCYTES 7.4 % (1.0-8.0); PLATELET COUNT 242 thou/uL (150-400); RBC 4.96 mil/uL (4.20-5.00); WBC 5.5 thou/uL (4.0-11.0)
[2019-03-04 22:37] LABS: CALCIUM 9.4 mg/dL (8.5-10.1); CREATININE 0.7 mg/dL (0.6-1.0); POTASSIUM 3.7 mmol/L (3.5-5.1)
[2019-03-04 22:43] LABS: ALBUMIN 3.9 g/dL (3.4-5.0); TOTAL BILIRUBIN 0.4 mg/dL (<0.1-1.0); TOTAL PROTEIN 8.5 g/dL (6.4-8.2)
[2019-03-04] MEDS ORDERED: ZOFRAN ODT4 MG PO (23:44)
[2019-03-05] VITALS: BP 145/85
== END 2019-03-05 | disposition home or self-care (01) ==
LOC: ER 21:03
PROVIDERS: Nurse Practitioner
DX: L02.412 Cutaneous abscess of left axilla (principal); L73.2 Hidradenitis suppurativa; R11.2 Nausea with vomiting, unspecified; I10 Essential (primary) hypertension; R10.12 Left upper quadrant pain; K21.9 Gastro-esophageal reflux disease without esophagitis; Z79.899 Other long term (current) drug therapy; Z98.890 Other specified postprocedural states

== ENCOUNTER 2019-03-29 17:25 | Emergency (ER) | payer OTHER ==
[~2019-03-29] VITALS: Ht 157.5 cm; Wt 88.5 kg
[~2019-03-29 17:25] MED LIST changes: +ZOFRAN ODT4 MG PO
[2019-03-29] MEDS ORDERED: PRILOSEC OTC20 MG PO (17:32)
[2019-03-29] MEDS ORDERED: HYDRALAZINE 2525 MG PO (17:32)
[2019-03-29 18:38] LABS: ABSOLUTE NEUTROPHILS 3.1 thou/uL (1.4-8.2); BASOPHILS 0.9 % (0.0-2.0); EOSINOPHILS 1.1 % (0.0-3.0); HEMATOCRIT 40.5 % (37.0-47.0); HEMOGLOBIN 13.2 gm/dL (12.0-15.0); LYMPHOCYTES 30.5 % (24.0-44.0); MCH 25.7 pg (26.0-34.0); MCHC 32.7 g/dL (28.0-37.0); MCV 78.8 fL (80.0-100.0); PLATELET COUNT 230 thou/uL (150-400); POLYS 59.5 % (36.0-66.0); RBC 5.15 mil/uL (4.20-5.00); RDW 16.7 % (10.5-14.5); WBC 5.2 thou/uL (4.0-11.0)
[2019-03-29 18:45] LABS: CREATININE 0.8 mg/dL (0.6-1.0)
[2019-03-29 18:49] LABS: POTASSIUM 4.2 mmol/L (3.5-5.1)
[2019-03-29 18:51] LABS: ALBUMIN 4.1 g/dL (3.4-5.0); TOTAL BILIRUBIN 0.5 mg/dL (<0.1-1.0)
[2019-03-29 19:41] LABS: URINE BILIRUBIN NEGATIVE (Negative); URINE BLOOD NEGATIVE (Negative); URINE CLARITY CLEAR; URINE COLOR YELLOW; URINE GLUCOSE-RANDOM* NEGATIVE (Negative); URINE KETONES NEGATIVE (Negative); URINE LEUKOCYTES-REFLEX NEGATIVE (Negative); URINE NITRITE-REFLEX NEGATIVE (Negative); URINE PROTEIN (DIPSTICK) TRACE (Negative); URINE SPECIFIC GRAVITY 1.025 (1.005-1.035); URINE UROBILINOGEN 0.2 E.U./dl (0.2-1.0)
[2019-03-29] MEDS ORDERED: IBUPROFEN 600600 M1 PO (20:17)
[2019-03-29 21:00] VITALS: BP 122/63
== END 2019-03-29 21:00 | disposition home or self-care (01) ==
LOC: ER 17:25
PROVIDERS: Physician Assistant
DX: L73.2 Hidradenitis suppurativa (principal); I10 Essential (primary) hypertension; K21.9 Gastro-esophageal reflux disease without esophagitis; Z98.890 Other specified postprocedural states

== ENCOUNTER 2019-04-01 22:33 | Emergency (ER) | payer OTHER ==
[~2019-04-01 22:33] MED LIST changes: +HYDRALAZINE 2525 MG PO; +IBUPROFEN 600600 M1 PO; +PRILOSEC OTC20 MG PO
[2019-04-01 22:35] VITALS: BP 132/78
--- NOTE | 2019-04-02 17:12 | EKG ---
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[facility] : 1990 Requested By: Xu Em Order Number: [id number] MD: Antoine Cruz Measurements Intervals Warren Rate: 73 P: 23 IA: 176 QRS: 39 QRSD: 92 T: 26 QT: 398 QTc: 439 Interpretive Statements Sinus rhythm Nonspecific T wave abnormality Compared to ECG 11/26/2018 21:01:37 No significant change was found Electronically Signed On 04-02-2019 17:11:26 [employer] by Antoine Cruz [email or web address] <ELECTRONICALLY SIGNED> By: Antoine Cruz MD, [facility] 04/02/19 1711 [id number] 35 Antoine Cruz MD, FACC /EPI
== END 2019-04-02 00:05 | disposition left against medical advice (07) ==
LOC: ER 22:33
DX: Z53.21 Procedure and treatment not carried out due to patient leaving prior to being seen by health care provider (principal)